=== PATIENT | male | born 1990 | race Caucasian/White ===

== ENCOUNTER 2016-12-28 00:09 | Emergency (ER) | payer OTHER ==
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
[2016-12-28 00:18] VITALS: BP 121/82; PULSE 78; TEMP 98; BMI 22.8
[2016-12-28] MEDS ORDERED: IBUPROFEN 600 MG TABLET (FP) PO ONE ×2 (00:37→00:39)
== END 2016-12-28 00:46 | disposition home or self-care (01) ==
LOC: FER 00:09
DX: S46.911A Strain of unspecified muscle, fascia and tendon at shoulder and upper arm level, right arm, initial encounter (principal); V43.62XA Car passenger injured in collision with other type car in traffic accident, initial encounter; Y93.89 Activity, other specified; Y92.410 Unspecified street and highway as the place of occurrence of the external cause
CPT/HCPCS: 99282-25